=== PATIENT | female | born 1975 | race American Indian/Alaskan Native ===

== ENCOUNTER 2018-08-16 15:31 | Emergency (ER) | payer OTHER ==
--- NOTE | 2018-08-16 15:42 | Emergency Department Report ---
Blank Doc - Documentation Documentation: 43 y o female presents with left nostril bleeding tahts started today after she got out of the shower. states bleeding occured fro 30 mins Bleeding stopped while on the way to ED. [facility] evaluate
[2018-08-16] MEDS ORDERED: CATAPRES PO ONE (16:32)
[2018-08-16] MEDS ORDERED: VICKS SINEX NS ONE (16:32)
[2018-08-16 17:40] VITALS: BP 167/97
[2018-08-16] MEDS ORDERED: CLEOCIN PO ONE (17:40)
[2018-08-16] MEDS ORDERED: NORCO 5/325 PO ONE (17:40)
--- NOTE | 2018-08-16 17:45 | Emergency Department Report ---
ED General Adult HPI - General Chief complaint: Nosebleed Stated complaint: NOSE BLEEDS Time Seen by Provider: 08/16/18 15:38 Source: patient Mode of arrival: Ambulatory Limitations: No Limitations - History of Present Illness Initial comments: Patient is a 43-year-old female who is complaining of left sided nosebleeds. This occurred earlier today. Patient states she is unable to get it to stop at home. The patient has a history of hypertension and is been noncompliant last 2 years her meds. Patient states she has mild nausea she's been holding her head backwards trying to get the bleeding stopped. Severity scale (0 -10): 0 - Related Data Previous Rx's Medication Instructions Recorded Last Taken Type Amlodipine Besylate [Norvasc] 5 mg PO DAILY #30 tablet 08/16/18 Unknown Rx Clindamycin [Clindamycin CAP] 300 mg PO Q8H 3 Days cap 08/16/18 Unknown Rx HYDROcodone/APAP 5-325 [[place] 1 each PO Q4HR PRN #12 tablet 08/16/18 Unknown Rx 5/325] Allergies Allergy/AdvReac Type Severity Reaction Status Date / Time No Known Allergies Allergy Unverified 08/16/18 15:38 ED Review of Systems ROS: Stated complaint: NOSE BLEEDS Other details as noted in HPI Comment: All other systems reviewed and negative ED Past Medical Hx - Past Medical History Hx Hypertension: Yes Hx Asthma: Yes - Surgical History Additional Surgical History: C SECTION X 4 - Social History Smoking Status: Current Every Day Smoker Substance Use Type: Alcohol - Medications Home Medications: Home Medications Medication Instructions Recorded Confirmed Last Taken Type Amlodipine Besylate [Norvasc] 5 mg PO DAILY #30 tablet 08/16/18 Unknown Rx Clindamycin [Clindamycin CAP] 300 mg PO Q8H 3 Days cap 08/16/18 Unknown Rx HYDROcodone/APAP 5-325 [[place] 1 each PO Q4HR PRN #12 tablet 08/16/18 Unknown Rx 5/325] ED Physical Exam - General Limitations: No Limitations General appearance: alert, in no apparent distress - Head Head exam: Present: atraumatic, normocephalic - Eye Eye exam: Present: normal appearance - ENT ENT exam: Present: mucous membranes moist, other (patient's left anterior turbinates show some mild hyperemia there is no active bleeding at the time of the initial exam) - Neck Neck exam: Present: normal inspection - Respiratory Respiratory exam: Present: normal lung sounds bilaterally. Absent: respiratory distress, wheezes, rales, rhonchi - Cardiovascular Cardiovascular Exam: Present: regular rate, normal rhythm. Absent: systolic murmur, diastolic murmur, rubs, gallop - GI/Abdominal GI/Abdominal exam: Present: soft, normal bowel sounds. Absent: distended, tenderness, guarding, rebound - Extremities Exam Extremities exam: Present: normal inspection - Back Exam Back exam: Present: normal inspection - Neurological Exam Neurological exam: Present: alert, oriented X3 - Psychiatric Psychiatric exam: Present: normal affect, normal mood - Skin Skin exam: Present: warm, dry, intact, normal color. Absent: rash ED Course Vital Signs 08/16/18 08/16/18 08/16/18 15:38 16:39 17:39 Temperature 98.2 F Pulse Rate 85 69 Respiratory 20 Rate Blood Pressure 185/113 185/113 Blood Pressure 167/97 [Right] O2 Sat by Pulse 98 Oximetry ED Medical Decision Making - Medical Decision Making I discussed with the patient that she should be holding her head forward while pinching her nose. Patient after receiving Afrin spray did have return of her bleeding. A decision was made to use a Rhino nasal packing. Patient tolerated this well. Patient's had similar again decrease in her nosebleed. Patient will be discharged home with medicines for symptomatic relief. Nasal packing should stay in place for the next 24-48 hours. Critical care attestation.: If time is entered above; I have spent that time in minutes in the direct care of this critically ill patient, excluding procedure time. ED Disposition Clinical Impression: Epistaxis, Hypertensive urgency Disposition: DC-01 TO HOME OR SELFCARE Is pt being admited?: No Does the pt Need Aspirin: No Condition: Stable Instructions: Hypertension (ED), Epistaxis (ED) Additional Instructions: . Nasal packing should remain in place for the next 24-48 hours. Please see some [facility] for removal if they are unable to see you and timely fashion please return to the emergency department. Referrals: MIKE ARRINGTON MD [Primary Care Provider] - 3-5 Days Time of Disposition: 17:45
== END 2018-08-16 18:30 | disposition home or self-care (01) ==
LOC: ED 15:31
DX: R04.0 Epistaxis (principal); I16.0 Hypertensive urgency; I10 Essential (primary) hypertension; J45.909 Unspecified asthma, uncomplicated; F17.200 Nicotine dependence, unspecified, uncomplicated
CPT/HCPCS: 99282

== ENCOUNTER 2018-08-18 08:19 | Emergency (ER) | payer SELFPAY ==
--- NOTE | 2018-08-18 08:38 | Emergency Department Report ---
ED General Adult HPI - General Chief complaint: Nosebleed Stated complaint: WOUND CHECK Time Seen by Provider: 08/18/18 08:31 Source: patient Mode of arrival: Ambulatory Limitations: No Limitations - History of Present Illness Initial comments: Patient is a 43 years old female with history of hypertension. Patient present to the ER for nasal packing removal. Patient presented 3 days ago here for nasal bleeding. Patient stated that no bleeding since he had the package. Patient is taking amlodipine 5 mg for blood pressure. Patient denied any head ache, chest pain shortness of breaths weakness numbness or tingling sensation. Severity scale (0 -10): 8 - Related Data Previous Rx's Medication Instructions Recorded Last Taken Type Amlodipine Besylate [Norvasc] 5 mg PO DAILY #30 tablet 08/16/18 Unknown Rx Clindamycin [Clindamycin CAP] 300 mg PO Q8H 3 Days cap 08/16/18 Unknown Rx HYDROcodone/APAP 5-325 [[place] 1 each PO Q4HR PRN #12 tablet 08/16/18 Unknown Rx 5/325] Allergies Allergy/AdvReac Type Severity Reaction Status Date / Time No Known Allergies Allergy Unverified 08/16/18 15:38 ED Review of Systems ROS: Stated complaint: WOUND CHECK Other details as noted in HPI Comment: All other systems reviewed and negative ED Past Medical Hx - Past Medical History Previous Medical History?: Yes Hx Hypertension: Yes Hx Asthma: Yes - Surgical History Past Surgical History?: Yes Additional Surgical History: C SECTION X 4 - Social History Smoking Status: Former Smoker Substance Use Type: Alcohol, Prescribed - Medications Home Medications: Home Medications Medication Instructions Recorded Confirmed Last Taken Type Amlodipine Besylate [Norvasc] 5 mg PO DAILY #30 tablet 08/16/18 Unknown Rx Clindamycin [Clindamycin CAP] 300 mg PO Q8H 3 Days cap 08/16/18 Unknown Rx HYDROcodone/APAP 5-325 [[place] 1 each PO Q4HR PRN #12 tablet 08/16/18 Unknown Rx 5/325] ED Physical Exam - General Limitations: No Limitations General appearance: alert, in no apparent distress - Head Head exam: Present: atraumatic, normocephalic, normal inspection - ENT ENT exam: Present: normal exam, normal orophraynx, mucous membranes moist, other (no epistaxis.) ED Course Vital Signs 08/18/18 08:25 Temperature 97.7 F Pulse Rate 73 Respiratory 18 Rate Blood Pressure 160/105 O2 Sat by Pulse 96 Oximetry ED Medical Decision Making - Medical Decision Making Nasal packing removed from the left nostril, no complication, no bleeding. I advised the patient to increase her amlodipine to 10 mg and to follow up with her primary care physician in [place] in the next 2-3 days. Critical care attestation.: If time is entered above; I have spent that time in minutes in the direct care of this critically ill patient, excluding procedure time. ED Disposition Clinical Impression: Epistaxis, Hypertension Disposition: DC-01 TO HOME OR SELFCARE Is pt being admited?: No Condition: Stable Instructions: Epistaxis (ED), Hypertension (ED) Referrals: PRIMARY CARE, [Referring] - 3-5 Days
== END 2018-08-18 09:00 | disposition home or self-care (01) ==
LOC: ED 08:19
CPT/HCPCS: 99282